=== PATIENT | male | born 1965 | race Caucasian/White ===

== ENCOUNTER 2019-04-27 09:23 | Day surgery (SDC) | payer OTHER ==
[~2019-04-27] VITALS: Ht 185.4 cm; Wt 115.7 kg
[~2019-04-27 09:23] MED LIST: CIAL5TAB PO; LIDOCAINE 1% MDV 20ML VIAL SQ PRN; LR 1,000 ML IV ONE; PANT40TA3 PO
[2019-04-27] MEDS ORDERED: dexameTHASONE 4 MG/ML 1ML VIAL (J1100) As Ordered ONE (10:03)
[2019-04-27] MEDS ORDERED: KETOROLAC 60 MG/2 ML VIAL (J1885) As Ordered ONE (10:03)
[2019-04-27] MEDS ORDERED: ACETAMINOPHEN 1000MG 100ML IV BTL (OFIRMEV) (J0131 PER 10MG) As Ordered ONE (10:03)
[2019-04-27] MEDS ORDERED: propofoL 200 MG/20 ML VIAL As Ordered ONE (10:03)
[2019-04-27] MEDS ORDERED: SUGAMMADEX SODIUM 500 MG/5 ML VIAL (BRIDION) As Ordered ONE (10:03)
[2019-04-27] MEDS ORDERED: ONDANSETRON 4MG/2ML VIAL (J2405) As Ordered ONE (10:03)
[2019-04-27] MEDS ORDERED: fentaNYL 100 MCG/2 ML INJECTION (J3010) As Ordered ONE ×2 (10:03→14:40)
[2019-04-27] MEDS ORDERED: LIDOCAINE 2% INJ 100 MG/5 ML SDV (FOR ANES.) As Ordered ONE (10:03)
[2019-04-27] MEDS ORDERED: MIDAZOLAM INJ 2 MG/2 ML VIAL (J2250) As Ordered ONE (10:04)
[2019-04-27] MEDS ORDERED: ROCURONIUM BROMIDE 50 MG/5 ML VIAL As Ordered ONE ×2 (10:10→13:55)
[2019-04-27] MEDS ORDERED: BUPIVACAINE HCL 0.25% 30 ML VIAL As Ordered ONE (12:11)
[2019-04-27] MEDS ORDERED: MEPERIDINE INJ 25 MG/ML VIAL (J2175) IV PRN (15:30)
[2019-04-27] MEDS ORDERED: ACETAMINOPHEN TAB 650MG DOSE (2X325MG) PO PRN (15:30)
[2019-04-27] MEDS ORDERED: NORCO, ANEXSIA 5/325MG TABLET (HYDROcodone/ACETAMINOPHEN) PO PRN (15:30)
[2019-04-27] MEDS ORDERED: METOCLOPRAMIDE INJ 10MG/2ML VIAL (J2765) IV PRN (15:30)
[2019-04-27] MEDS ORDERED: IBUPROFEN 600 MG TAB PO PRN (15:30)
[2019-04-27] MEDS ORDERED: fentaNYL 100 MCG/2 ML INJECTION (J3010) IV PRN (15:30)
[2019-04-27] MEDS ORDERED: LR 1,000 ML IV SCH (15:30)
[2019-04-27] MEDS ORDERED: ONDANSETRON 4MG/2ML VIAL (J2405) IV PRN (15:30)
[2019-04-27] MEDS ORDERED: oxyCODONE 5MG TAB PO PRN (15:30)
[2019-04-27 17:15] VITALS: BP 132/80
[2019-04-27] MEDS ORDERED: NORC1TAB7 PO (17:37)
--- NOTE | 2019-04-29 15:22 | RO ---
DATE OF PROCEDURE: 04/27/2019 PREOPERATIVE DIAGNOSIS: Left inguinal hernia. POSTOPERATIVE DIAGNOSIS: Indirect left inguinal hernia. PROCEDURE PERFORMED: Robotic-assisted laparoscopic left inguinal hernia repair with mesh. The mesh utilized was a Bard 3-D Max light mesh size large for the left side. This was reference code [id number] and a lot number [id number]. SURGEON: Dr. Tamez PUBLIC HEALTH SANITARIAN: PILY Mayes. Cynthia's assistance was required for placement of the trocars, docking and undocking of the robot, passage of mesh and sutures and closure of the incisions. ANESTHESIA: General. INDICATIONS FOR PROCEDURE: Patient is 53-year-old man who had noticed a bulge the left inguinal area. Examination confirmed a left inguinal hernia and he is now for repair of same. OPERATIVE PROCEDURE: The patient was brought to the operating room and placed on the table in a supine position. He was placed under general endotracheal anesthesia. The patient's abdomen, groins and genitalia were prepped and draped in a sterile fashion. Initial incision was in the mid upper abdomen slightly to the right of the midline. 0.25% Marcaine was infiltrated at the trocar sites as needed. A Veress needle was inserted and after positive hanging drop test, the abdomen was insufflated with carbon dioxide gas. An 8 mm robotic port was placed over 5 mm scope and advanced through the abdominal wall without difficulty. Initial examination showed normal-appearing liver. The hernia defect in the left lower quadrant was at least partially obscured by some significant adhesions of the area of the sigmoid colon to the anterior abdominal wall. There was a small dimple in the peritoneum on the right side at the area where a inguinal hernia might be noted. Two additional 8 mm robotic ports were placed; one on the right and one on the left. The patient was tilted to an approximately 15 degrees head down position. The [facility] XI patient console was then brought into position and the endoscope port was docked. Targeting took place in the pelvis and the additional robotic ports were docked. A forced bipolar was placed along with cauterizing scissors. I then moved to the control console to begin the operation. Initially, several looser adhesions of some appendices epiploica of the sigmoid colon to the peritoneum were divided with cautery. As these were moved away, it was clear that there was marked scarring around the opening of his inguinal hernia on the left. The sigmoid colon was densely adherent in this area. There was a definite indirect hernia sac extending through the inguinal floor. A peritoneal flap was then created using the cauterizing scissors beginning at the medial umbilical ligament and extending laterally and inferiorly toward the anterior-superior iliac spine. The flap was developed with combination of sharp and blunt and cautery dissection. There was a smaller area of hernia sac which was quite scarred along the spermatic cord tissues. There appeared to be some fibrofatty tissue that was herniated and this was reduced as well. The fascial defect was clearly identified. A left-sided Bard 3-D Max light large mesh was selected. This was placed against the anterior abdominal wall through the peritoneal flap. A 2-0 Vicryl was used to tack this at the area of Joshua's ligament medially and at the upper outer edge of the mesh laterally. The mesh nicely covered the needed area. The peritoneal flap was then closed with a running suture of 2-0 V-Loc. I then inspected the small dimple on the right and this was an approximately 1 cm deep opening but without any evidence of a true hernia. The patient was returned to a flat position. The robotic instruments were removed and the robot undocked. The abdomen was deflated and the trocars were removed. Cynthia Butcher proceeded with closure of the skin incisions. This was accomplished with 4-0 Vicryl and Steri-Strips and light dressings were placed. The patient was awakened in the operating room, extubated and moved to the recovery room in stable condition.
== END 2019-04-27 17:25 | disposition home or self-care (01) ==
LOC: M SDC 09:23
PROVIDERS: ATTEND Surgery
DX: K40.90 Unilateral inguinal hernia, without obstruction or gangrene, not specified as recurrent (principal); K21.9 Gastro-esophageal reflux disease without esophagitis; F17.290 Nicotine dependence, other tobacco product, uncomplicated
CPT/HCPCS: 49650; C1781; J0131; J1100; J1885; J2250; J2405; J2765; J3010